=== PATIENT | male | born 1960 | race Caucasian/White ===

== ENCOUNTER → 2016-06-13 | Outpatient (CLI) | payer OTHER ==
[~2016-06-13] MED LIST: AMLO10TA2 PO; BUPR150CR PO; CALC1TAB87 PO; CYMB60CA PO; GABA100C4 PO; GABA300C5 PO; HYDR-3533 PO; HYDR25TA5 PO; IBUP800T23 PO; LIPI10TA PO; LISI10TA3 PO; METO25TA3 PO; OMEP20.6 PO; QUET1TAB8 PO; RANI150T PO; SERT-132 PO
--- NOTE | 2016-06-13 10:55 | RADRPT ---
EXAM DATE/TIME: 06/13/2016 09:49 [facility] COMPARISON: FOOT RIGHT COMPLETE ([id number]), May 03, 2016, 10:37. INDICATIONS : Follow up fracture 05-01-16. MEDICAL HISTORY : None. SURGICAL HISTORY : rolled 4th digit right foot 05-01-16., 1st digit amputated from toe infection ENCOUNTER: Initial ACUITY: 1 month PAIN SCORE: 0/10 LOCATION: Right 4th digit FINDINGS: Examination of the fourth digit of the right foot demonstrates interval callus formation around the p reviously identified diaphyseal fracture of the fourth metatarsal. There is partial bony union across the fracture line. Transmetatarsal amputation through the proximal diaphysis the first ray. No new f racture. CONCLUSION: 1. Brisk callus formation around the diaphyseal fracture of the fourth metatarsal with partial bony f usion across the fracture line. 2. No new osseous injury. Danie Resendiz MD on June 13, 2016 at 10:49 Board Certified Radiologist. This report was verified electronically.
== END ==
LOC: HRAD 09:34
PROVIDERS: ATTEND Family Medicine
DX: S92.341A Displaced fracture of fourth metatarsal bone, right foot, initial encounter for closed fracture (principal); X58.XXXA Exposure to other specified factors, initial encounter
CPT/HCPCS: 73660

== ENCOUNTER 2016-07-26 19:50 | Emergency (ER) | payer OTHER ==
[~2016-07-26] VITALS: Ht 185.4 cm; Wt 100.0 kg
[~2016-07-26 19:50] MED LIST changes: -BUPR150CR PO; -CALC1TAB87 PO; -GABA100C4 PO; -LIPI10TA PO; -LISI10TA3 PO; -RANI150T PO
[2016-07-26 19:52] VITALS: BP 141/90; PULSE 84; RESP 16; TEMP 97.8; O2SAT 97
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
[2016-07-26] MEDS ORDERED: HYDR-3533 PO (21:02)
[2016-07-26] MEDS ORDERED: ACETAMINOPHEN/HYDROcodone 325 MG/5 MG TAB PO ONE (21:15)
--- NOTE | 2016-07-26 21:53 | RADRPT ---
EXAM DATE/TIME: 07/26/2016 20:38 [facility] COMPARISON: FOOT RIGHT COMPLETE ([id number]), May 03, 2016, 10:37. INDICATIONS : Right foot pain. MEDICAL HISTORY : None. SURGICAL HISTORY : great toe amputated because of joint infection ENCOUNTER: Initial ACUITY: 1 day PAIN SCORE: 5/10 LOCATION: Right foot FINDINGS: There is acute fracture involving the third metatarsal bone in the midportion. There is a healing fra cture of the fourth metatarsal bone. Again noted is amputation of the first digit. CONCLUSION: There is a new fracture involving the third metatarsal bone. Tulio Ness MD on July 26, 2016 at 21:50 Board Certified Radiologist. This report was verified electronically.
[2016-08-03] MEDS ORDERED: LIPI10TA PO (03:36)
[2016-09-27] MEDS ORDERED: AMLO10TA2 PO (11:48)
[2016-09-27] MEDS ORDERED: LIPI10TA PO (11:49)
[2016-10-27] MEDS ORDERED: GABA100C4 PO (14:54)
[2016-10-27] MEDS ORDERED: LISI10TA3 PO (15:08)
[2016-10-27] MEDS ORDERED: OMEP20.6 PO (15:10)
== END 2016-07-26 23:10 | disposition home or self-care (01) ==
LOC: NEPB 19:50
DX: S92.331A Displaced fracture of third metatarsal bone, right foot, initial encounter for closed fracture (principal); X58.XXXA Exposure to other specified factors, initial encounter; Y93.02 Activity, running
CPT/HCPCS: 73630; 99283; L3260; 29125

== ENCOUNTER → 2016-08-01 | Outpatient (CLI) | payer OTHER ==
[~2016-08-01] MED LIST changes: +BUPR150CR PO; +CALC1TAB87 PO; +GABA100C4 PO; +LIPI10TA PO; +LISI10TA3 PO
[2016-08-01 10:14] LABS: AUTOMATED NEUTROPHIL # 4.4 TH/MM3 (1.8-7.7); BASOPHIL % 0.6 % (0.0-2.0); EOSINOPHIL # 0.1 TH/MM3 (0-0.4); EOSINOPHIL % 1.7 % (0.0-4.0); HEMATOCRIT 40.4 % (39.0-51.0); HEMO FLAGS DIFF FINAL; LYMPH % 20.5 % (9.0-44.0); LYMPHOCYTE # 1.3 TH/MM3 (1.0-4.8); MEAN CELL VOLUME 93.8 FL (80.0-100.0); MEAN CORPUSCULAR HEMOGLOBIN 31.2 PG (27.0-34.0); MEAN CORPUSCULAR HGB CONC 33.3 % (32.0-36.0); MONO % 8.5 % (0.0-8.0); NEUT % 68.7 % (16.0-70.0); PLATELET COUNT 209 TH/MM3 (150-450); RED BLOOD COUNT 4.31 MIL/MM3 (4.50-5.90); RED CELL DISTRIBUTION WIDTH 13.3 % (11.6-17.2); WHITE BLOOD COUNT 6.4 TH/MM3 (4.0-11.0)
[2016-08-01 10:41] LABS: ALKALINE PHOSPHATASE 78 U/L (45-117); ALT (GPT) 114 U/L (12-78); ANION GAP 9 MEQ/L (5-15); AST (GOT) 79 U/L (15-37); BLOOD UREA NITROGEN 16 MG/DL (7-18); CHLORIDE 97 MEQ/L (98-107); GLOMERULAR FILTRATION RATE 66 ML/MIN (>89); GLUCOSE,FASTING 112 MG/DL (74-99); HDL CHOLESTEROL 62.7 MG/DL (40.0-60.0); LDL CHOLESTEROL 164 MG/DL (0-99); POTASSIUM 3.4 MEQ/L (3.5-5.1); SODIUM (NA) 137 MEQ/L (136-145); TOTAL BILIRUBIN ADULT 0.5 MG/DL (0.2-1.0)
== END ==
LOC: CLAB 09:45
PROVIDERS: ATTEND Family Medicine
DX: F32.9 Major depressive disorder, single episode, unspecified (principal); I10 Essential (primary) hypertension; E78.5 Hyperlipidemia, unspecified; G57.90 Unspecified mononeuropathy of unspecified lower limb; S98.139A Complete traumatic amputation of one unspecified lesser toe, initial encounter; S92.341A Displaced fracture of fourth metatarsal bone, right foot, initial encounter for closed fracture; X58.XXXA Exposure to other specified factors, initial encounter
CPT/HCPCS: 36415; 80053; 80061; 84443; 85025

== ENCOUNTER → 2016-08-04 | Outpatient (CLI) | payer OTHER | LOC: CLAB 09:14 | PROVIDERS: ATTEND Family Medicine | DX: R74.8 Abnormal levels of other serum enzymes (principal) | CPT/HCPCS: 36415; 80074 ==

== ENCOUNTER → 2016-09-12 | Outpatient (CLI) | payer OTHER ==
[2016-09-12 10:32] LABS: ALKALINE PHOSPHATASE 99 U/L (45-117); ALT (GPT) 108 U/L (12-78); ANION GAP 11 MEQ/L (5-15); AST (GOT) 85 U/L (15-37); BICARBONATE 29.3 MEQ/L (21.0-32.0); BLOOD UREA NITROGEN 21 MG/DL (7-18); CHLORIDE 98 MEQ/L (98-107); GLOMERULAR FILTRATION RATE 63 ML/MIN (>89); GLUCOSE,FASTING 132 MG/DL (74-99); POTASSIUM 3.1 MEQ/L (3.5-5.1); SODIUM (NA) 138 MEQ/L (136-145); TOTAL BILIRUBIN ADULT 0.8 MG/DL (0.2-1.0)
== END ==
LOC: CLAB 09:38
PROVIDERS: ATTEND Family Medicine
DX: R74.8 Abnormal levels of other serum enzymes (principal)
CPT/HCPCS: 36415; 80053

== ENCOUNTER 2016-10-17 15:52 | Inpatient (IN) | payer OTHER ==
[~2016-10-17] VITALS: Ht 185.4 cm; Wt 91.1 kg
[~2016-10-17 15:52] MED LIST changes: -BUPR150CR PO; -CALC1TAB87 PO; -GABA100C4 PO; -HYDR-3533 PO; -LISI10TA3 PO; -SERT-132 PO
[2016-10-17 15:54] VITALS: BP 132/88; PULSE 110; RESP 20; TEMP 98.7; O2SAT 94
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
[2016-10-17] MEDS ORDERED: LORazepam 2 MG/ML VIAL IV PUSH ONE (17:45)
[2016-10-17] MEDS ORDERED: SODIUM CHLORIDE 0.9% FLUSH 10 ML FLUSH IVF PRN (17:45)
[2016-10-17 17:55] VITALS: BP 161/99; PULSE 86; RESP 16; O2SAT 96
--- NOTE | 2016-10-17 18:04 | RADRPT ---
EXAM DATE/TIME: 10/17/2016 17:53 [facility] COMPARISON: No previous studies available for comparison. INDICATIONS : Shortness of breath. MEDICAL HISTORY : Hypertension. SURGICAL HISTORY : None. ENCOUNTER: Initial ACUITY: 1 day PAIN SCORE: 0/10 LOCATION: Bilateral chest FINDINGS: No infiltrate, effusion or pneumothorax. Mild, symmetric and chronic appearing biapical pleural thick ening/scarring noted. Heart size normal. CONCLUSION: No evidence of acute cardiopulmonary disease. Floyd Osuna MD on October 17, 2016 at 18:02 Board Certified Radiologist. This report was verified electronically.
[2016-10-17 19:00] LABS: AUTOMATED NEUTROPHIL # 5.8 TH/MM3 (1.8-7.7); BASOPHIL # 0.1 TH/MM3 (0-0.2); BASOPHIL % 0.9 % (0.0-2.0); EOSINOPHIL # 0.1 TH/MM3 (0-0.4); EOSINOPHIL % 1.3 % (0.0-4.0); HEMATOCRIT 38.9 % (39.0-51.0); HEMO FLAGS DIFF FINAL; LYMPH % 24.3 % (9.0-44.0); LYMPHOCYTE # 2.1 TH/MM3 (1.0-4.8); MEAN CELL VOLUME 93.9 FL (80.0-100.0); MEAN CORPUSCULAR HEMOGLOBIN 31.7 PG (27.0-34.0); MEAN CORPUSCULAR HGB CONC 33.7 % (32.0-36.0); MONO % 7.8 % (0.0-8.0); NEUT % 65.7 % (16.0-70.0); PLATELET COUNT 238 TH/MM3 (150-450); RED BLOOD COUNT 4.14 MIL/MM3 (4.50-5.90); RED CELL DISTRIBUTION WIDTH 13.2 % (11.6-17.2); WHITE BLOOD COUNT 8.8 TH/MM3 (4.0-11.0)
[2016-10-17 19:16] LABS: ANION GAP 16 MEQ/L (5-15); AST (GOT) 108 U/L (15-37); BICARBONATE 19.1 MEQ/L (21.0-32.0); BLOOD UREA NITROGEN 20 MG/DL (7-18); CHLORIDE 93 MEQ/L (98-107); GLOMERULAR FILTRATION RATE 69 ML/MIN (>89); MAGNESIUM 1.9 MG/DL (1.5-2.5); POTASSIUM 3.4 MEQ/L (3.5-5.1); SODIUM (NA) 128 MEQ/L (136-145)
[2016-10-17 19:17] LABS: ALT (GPT) 129 U/L (12-78)
[2016-10-17 19:21] LABS: ALKALINE PHOSPHATASE 106 U/L (45-117); TOTAL BILIRUBIN ADULT 0.4 MG/DL (0.2-1.0)
[2016-10-17] MEDS ORDERED: SODIUM CHLOR 0.9% 1000 ML INJ 1,000 ML IV SCH ×2 (19:27→19:31)
[2016-10-17] MEDS ORDERED: POTASSIUM CHLORIDE 20 MEQ CONTROLLED RELEASE TAB PO ONE (19:45)
[2016-10-17 19:48] LABS: CREATINE KINASE 82 U/L (39-308)
[2016-10-17] MEDS ORDERED: IOHEXOL 350 MG/ML 10 ML VIAL (for RAD DIAG) IV ONE (20:22)
--- NOTE | 2016-10-17 20:24 | RADRPT ---
EXAM DATE/TIME: 10/17/2016 20:08 [facility] COMPARISON: No previous studies available for comparison. INDICATIONS : Cephalgia. RADIATION DOSE: 53.69 CTDIvol (mGy) MEDICAL HISTORY : Hypertension. SURGICAL HISTORY : None. ENCOUNTER: Initial ACUITY: 2 days PAIN SCALE: 5/10 LOCATION: cranial TECHNIQUE: Multiple contiguous axial images were obtained of the head. Using automated exposure control and adj ustment of the mA and/or kV according to patient size, radiation dose was kept as low as reasonably a chievable to obtain optimal diagnostic quality images. FINDINGS: CEREBRUM: The ventricles are normal for age. No evidence of midline shift, mass lesion, hemorrhage or acute in farction. No extra-axial fluid collections are seen. POSTERIOR FOSSA: The cerebellum and brainstem are intact. The 4th ventricle is midline. The cerebellopontine angle i s unremarkable. EXTRACRANIAL: The visualized portion of the orbits is intact. SKULL: The calvaria is intact. No evidence of skull fracture. CONCLUSION: Negative noncontrast head CT. Floyd Osuna MD on October 17, 2016 at 20:22 Board Certified Radiologist. This report was verified electronically.
--- NOTE | 2016-10-17 20:34 | RADRPT ---
EXAM DATE/TIME: 10/17/2016 20:12 [facility] COMPARISON: No previous studies available for comparison. INDICATIONS : Short of breath X1 month, chest pain today. IV CONTRAST: 73 cc Omnipaque 350 (iohexol) IV RADIATION DOSE: 23.52 CTDIvol (mGy) MEDICAL HISTORY : Hypertension. SURGICAL HISTORY : None. ENCOUNTER: Initial ACUITY: 1 day PAIN SCALE: 0/10 LOCATION: chest TECHNIQUE: Volumetric scanning of the chest was performed using a pulmonary embolism protocol MIP images were re constructed. Using automated exposure control and adjustment of the mA and/or kV according to patien t size, radiation dose was kept as low as reasonably achievable to obtain optimal diagnostic quality images. FINDINGS: PULMONARY ARTERIES: No filling defects are seen in the pulmonary arteries through the segmental level. LUNGS: Mild emphysema. There is no consolidation or pneumothorax . No concerning pulmonary nodule is visual ized. PLEURAE: There is no pleural thickening or pleural effusion. MEDIASTINUM: There is good visualization of the great vessels of the middle mediastinum. No evidence of mediastin al or hilar adenopathy/mass. MUSCULOSKELETAL: Within normal limits for patient age. MISCELLANEOUS: Liver is severely fatty infiltrated and probably enlarged. CONCLUSION: No pulmonary embolus or other acute cardiopulmonary disease demonstrated. There is mild emphysema. Li marti is fatty infiltrated. Floyd Osuna MD on October 17, 2016 at 20:31 Board Certified Radiologist. This report was verified electronically.
[2016-10-17] MEDS ORDERED: SODIUM CHLORIDE 0.9% FLUSH 10 ML FLUSH IV FLUSH PRN (21:00)
[2016-10-17] MEDS ORDERED: NALOXONE HCL 0.4 MG/ML AMP IV PRN (21:00)
[2016-10-17] MEDS: SODIUM CHLORIDE 0.9% FLUSH 10 ML FLUSH IV FLUSH SCH (21:00)
--- NOTE | 2016-10-17 21:56 | EKG ---
Date Performed: 10/17/2016 Time Performed: 18:17:10 PTAGE: 56 years EKG: BASELINE ARTIFACT PRESENT. Sinus rhythm NONSPECIFIC T-WAVE ABNORMALITY BORDERLINE ECG COMPARED TO PRIOR ELECTROCARDIOGRAM, T-wave changes ar e present. PREVIOUS TRACING : 05/27/2014 10.02 DOCTOR: Ethan Schmitz Interpretating Date/Time 10/19/2016 07:07:12
[2016-10-17 22:40] VITALS: BP 104/54
[2016-10-17] MEDS ORDERED: CALC1TAB87 PO (23:44)
[2016-10-17] MEDS ORDERED: BUPR150CR PO (23:44)
[2016-10-18] VITALS (7 sets, daily range): BP systolic 125–169; BP diastolic 84–102; PULSE 73–85; RESP 17–18; TEMP 96.6–97.8; O2SAT 93–98
[2016-10-18 02:30] LABS: AUTOMATED NEUTROPHIL # 4.4 TH/MM3 (1.8-7.7); BASOPHIL % 0.6 % (0.0-2.0); EOSINOPHIL # 0.1 TH/MM3 (0-0.4); EOSINOPHIL % 1.4 % (0.0-4.0); HEMATOCRIT 36.5 % (39.0-51.0); HEMO FLAGS DIFF FINAL; LYMPH % 24.1 % (9.0-44.0); LYMPHOCYTE # 1.6 TH/MM3 (1.0-4.8); MEAN CELL VOLUME 94.6 FL (80.0-100.0); MEAN CORPUSCULAR HEMOGLOBIN 31.2 PG (27.0-34.0); MEAN CORPUSCULAR HGB CONC 32.9 % (32.0-36.0); MONO % 7.9 % (0.0-8.0); PLATELET COUNT 193 TH/MM3 (150-450); RED BLOOD COUNT 3.86 MIL/MM3 (4.50-5.90); RED CELL DISTRIBUTION WIDTH 13.2 % (11.6-17.2); WHITE BLOOD COUNT 6.6 TH/MM3 (4.0-11.0)
[2016-10-18 02:40] LABS: ALKALINE PHOSPHATASE 90 U/L (45-117); ALT (GPT) 110 U/L (12-78); ANION GAP 8 MEQ/L (5-15); AST (GOT) 97 U/L (15-37); BICARBONATE 27.6 MEQ/L (21.0-32.0); BLOOD UREA NITROGEN 19 MG/DL (7-18); CHLORIDE 106 MEQ/L (98-107); GLOMERULAR FILTRATION RATE 85 ML/MIN (>89); POTASSIUM 3.9 MEQ/L (3.5-5.1); SODIUM (NA) 142 MEQ/L (136-145); TOTAL BILIRUBIN ADULT 0.7 MG/DL (0.2-1.0)
[2016-10-18 02:41] LABS: CREATINE KINASE 81 U/L (39-308)
--- NOTE | 2016-10-18 04:04 | HHI.HP ---
[facility]ician Robyn Aviles MD Admission Diagnosis dyspnea, dizziness, hyponatremia Diagnoses: Travel History International Travel<30 Days: No Contact w/Intl Traveler <30 Da: No Traveled to Known Affected Are: No History of Present Illness Patient reports that he came to the hospital because he was having shortness of breath and dizziness for over a month. He states that he is also having associated muscle spasms that he wanted it checked out. He reports his shortness of breath is mostly on exertion. Denies using pillows milligram his normal. Denies peripheral edema. He states that he does have some right foot swelling which is chronic. Denies cough. Denies sputum production. Denies fever. Denies any recent prolonged travels. States that he does smoke about a pack a day for about 15 years. However quit 25 years ago. He states that his dizziness was worse when he sat up suddenly. He states sometimes he felt as though this dizziness is radiating down his arms. He has fallen 3 times so far because of this dizziness. He states that the last time was just last week at [employer] suddenly fell backwards as he was trying to stand up. Denies syncope though. Denies any chest pains or palpitations. Patient reports history of hypertension for which she takes medications. He states that his blood pressure has been low in the 90s systolic over 60s diastolic. Therefore his primary care doctor has actually taken away his diuretics from his blood pressure regimen. Also reports of hard stool which is black in color. He reports seeing some red color streaks of blood on wiping as well. Never had colonoscopy. Denies any hematemesis does drink etoh - only 1-3 drinks each time, but not every day, mostly social drinker essential tremors from family hx when 18yo lacerated liver from accident Review of Systems Except as stated in HPI: all other systems reviewed are Neg Past Family Social History Past Medical History htn 5 yrs ago- stress test- wnl Past Surgical History chest tube for collapsed lung from accident at 18yo liver laceration sx at 18yo from accident foot sx Allergies: Coded Allergies: No Known Allergies (Unverified , 10/17/16) Family History mother- breast cancer father- stroke, had some cancer but doesnt know which one essential tremors Social History no drugs Physical Exam Vital Signs Vital Signs Date Time Temp Pulse Resp B/P Pulse Ox O2 Delivery O2 Flow Rate FiO2 10/18/16 00:16 97.0 85 17 151/94 94 10/17/16 22:48 Nasal Cannula 2.00 10/17/16 22:40 102 16 104/54 99 10/17/16 22:01 96 10/17/16 17:55 86 16 161/99 96 Nasal Cannula 2 10/17/16 15:54 98.7 110 20 132/88 94 Physical Exam GENERAL: This is a well-nourished, well-developed patient, in no apparent distress. SKIN: No rashes, ecchymoses or lesions. Cool and dry. HEAD: Atraumatic. Normocephalic. No temporal or scalp tenderness. EYES: No scleral icterus. No injection or drainage. ENT: Nose without bleeding, purulent drainage or septal hematoma. Airway patent. NECK: Trachea midline. No JVD CARDIOVASCULAR: Regular rate and rhythm without murmurs, gallops, or rubs. RESPIRATORY: Clear to auscultation. Breath sounds equal bilaterally. No wheezes , rales, or rhonchi. GASTROINTESTINAL: Abdomen soft, non-tender, nondistended.. No guarding. MUSCULOSKELETAL: Extremities without clubbing, cyanosis, or edema. . No calf tenderness. NEUROLOGICAL: Awake and alert. Motor and sensory grossly within normal limits. Normal speech. Laboratory Laboratory Tests Test 10/17/16 10/17/16 10/18/16 18:30 19:30 02:02 White Blood Count 8.8 6.6 Red Blood Count 4.14 3.86 Hemoglobin 13.1 12.0 Hematocrit 38.9 36.5 Mean Corpuscular Volume 93.9 94.6 Mean Corpuscular Hemoglobin 31.7 31.2 Mean Corpuscular Hemoglobin 33.7 32.9 Concent Red Cell Distribution Width 13.2 13.2 Platelet Count 238 193 Mean Platelet Volume 8.0 7.9 Neutrophils (%) (Auto) 65.7 66.0 Lymphocytes (%) (Auto) 24.3 24.1 Monocytes (%) (Auto) 7.8 7.9 Eosinophils (%) (Auto) 1.3 1.4 Basophils (%) (Auto) 0.9 0.6 Neutrophils # (Auto) 5.8 4.4 Lymphocytes # (Auto) 2.1 1.6 Monocytes # (Auto) 0.7 0.5 Eosinophils # (Auto) 0.1 0.1 Basophils # (Auto) 0.1 0.0 CBC Comment DIFF FINAL DIFF FINAL Differential Comment Sodium Level 128 142 Potassium Level 3.4 3.9 Chloride Level 93 106 Carbon Dioxide Level 19.1 27.6 Anion Gap 16 8 Blood Urea Nitrogen 20 19 Creatinine 1.11 0.92 Estimat Glomerular Filtration 69 85 Rate Random Glucose 98 112 Calcium Level 8.9 8.0 Magnesium Level 1.9 Total Bilirubin 0.4 0.7 Aspartate Amino Transf 108 97 (AST/SGOT) Alanine Aminotransferase 129 110 (ALT/SGPT) Alkaline Phosphatase 106 90 Total Creatine Kinase 82 81 Troponin I LESS THAN 0.02 LESS THAN 0.02 B-Type Natriuretic Peptide LESS THAN 2 Total Protein 7.8 6.6 Albumin 3.7 3.3 Lactic Acid Level 1.9 Salicylates Level LESS THAN 1.7 Result Diagram: 10/18/16 0202 10/18/16 0202 Imaging Last 48 hours Impressions Chest X-Ray 10/17/161733 Signed Impressions: Service Date/Time: Monday, October 17, 2016 17:53 - CONCLUSION: No evidence of acute cardiopulmonary disease. Floyd Osuna MD CT Angiography 10/17/161733 Signed Impressions: Service Date/Time: Monday, October 17, 2016 20:12 - CONCLUSION: No pulmonary embolus or other acute cardiopulmonary disease demonstrated. There is mild emphysema. Liver is fatty infiltrated. Floyd Osuna MD Head CT 10/17/16 0000 Signed Impressions: Service Date/Time: Monday, October 17, 2016 20:08 - CONCLUSION: Negative noncontrast head CT. Floyd Osuna MD Assessment and Plan Problem List: (1) Shortness of breath ICD Code: R06.02 Status: Acute (2) Elevated liver function tests ICD Code: R94.5 Status: Acute (3) Dyspnea on exertion ICD Code: R06.09 Status: Acute (4) Hyponatremia ICD Code: E87.1 Status: Acute (5) Hypokalemia ICD Code: E87.6 Status: Acute Assessment and Plan Impression: Dizziness/shortness of breath on exertionI do believe these are from symptomatic anemia. Patient's BNP is normal. Chest x-ray did not reveal any infiltrates nor pulmonary edema. CT pulmonary angiogram is negative for PE. Tremorsessential tremors versus early alcohol withdrawal. Difficult to assess the exact quantity of his drinking. We'll need to watch for withdrawal. Hyponatremia Hypokalemia Anion gap Metabolic acidosis transaminitis Plan: Serial hemoglobin and hematocrit. Occult blood in stool. GI consult. For ischemia workup Electrolyte correction. Patient was given normal saline 2 L bolus in ER. Hyponatremia had resolved. Replace potassium 40 a.m. EQ by mouth. Check hepatitis profile. Repeat lab work BMP Hold statin. Lowest resume home meds. DVT prophylaxis Lovenox. GI prophylaxis on pantoprazole. Discussed Condition With Patient, ER physician, patient's nurse Physician Certification 2 Midnight Certification Type: Admission for Inpatient Services Order for Inpatient Services The services are ordered in accordance with Medicare regulations or non- Medicare payer requirements, as applicable. In the case of services not specified as inpatient-only, they are appropriately provided as inpatient services in accordance with the 2-midnight benchmark. Estimated LOS (days): 2 days is the estimated time the patient will need to remain in the hospital, assuming treatment plan goals are met and no additional complications. Post-Hospital Plan: Home Sebastian Zuleta MD Oct 18, 2016 04:04
--- NOTE | 2016-10-18 07:51 | EKG ---
Date Performed: 10/18/2016 Time Performed: 01:48:19 PTAGE: 56 years EKG: BASELINE ARTIFACT PRESENT. Sinus rhythm NONSPECIFIC T-WAVE ABNORMALITY BORDERLINE ECG Within the constraints of artifact, no significant hieu nge. PREVIOUS TRACING : 10/17/2016 18.17 DOCTOR: Ethan Schmitz Interpretating Date/Time 10/18/2016 07:50:35
[2016-10-18] MEDS: buPROPion HCL 150 MG SUSTAINED RELEASE TAB PO SCH (09:00)
--- NOTE | 2016-10-18 10:30 | EKG ---
Date Performed: 10/18/2016 Time Performed: 08:02:35 PTAGE: 56 years EKG: Sinus rhythm NORMAL ECG COMPARED TO PRIOR ELECTROCARDIOGRAM, Nonspecific T wave changes have improved. PREVIOUS TRACING : 10/18/2016 01.48 DOCTOR: Ethan Schmitz Interpretating Date/Time 10/18/2016 10:28:42
[2016-10-18 10:36] LABS: CREATINE KINASE 97 U/L (39-308)
[2016-10-18] MEDS: METOPROLOL TARTRATE 25 MG TAB PO SCH ×2 (10:39→21:17)
[2016-10-18] MEDS: PANTOPRAZOLE SOD 20 MG DELAYED RELEASE TAB PO SCH ×2 (10:39→21:18)
[2016-10-18] MEDS: GABAPENTIN 300 MG CAP PO SCH ×2 (10:39→21:18)
[2016-10-18] MEDS: SODIUM CHLORIDE 0.9% FLUSH 10 ML FLUSH IV FLUSH SCH ×2 (10:43→21:18)
--- NOTE | 2016-10-18 11:42 | PD.CONS ---
HPI History of Present Illness This is a 56 year old male who presented to hospital with SOB, dizziness, decreased activity tolerance, onset 3m ago. He was found to be anemic with hgb 13 yesterday and 12 today, and have heme pos stool. He has fallen 3 times from being dizzy. He has also had black stools for the last 6 months and has recently started noticing bright red blood on wipe after BM. He has been taking ibuprofen 9736-1411 mg daily for the last year for a foot injury. No n/v , hematemesis, pain, weight loss. He does have reflux for which he takes omeprazole and it controls his symptoms. He had a barium swallow 04/2016 for GERD which showed moderate to severe gastroesophageal reflux to the level of cervical esophageal with valsalva maneuver, small sliding type hiatal hernia. ( Megan Armando) PFSH Past Medical History htn 5 yrs ago- stress test- wnl Past Surgical History chest tube for collapsed lung from accident at 18yo liver laceration sx at 18yo from accident foot sx (Megan Armando) Coded Allergies: No Known Allergies (Unverified , 10/17/16) Family History mother- breast cancer father- stroke, had some cancer but doesnt know which one essential tremors Social History no drugs occasional ETOH former smoker per EMR (Megan Armando) Review of Systems Constitutional: COMPLAINS OF: Dizziness, DENIES: Fever, Weight loss Eyes: DENIES: Blurred vision Ears, nose, mouth, throat: DENIES: Hearing loss Respiratory: DENIES: Wheezing Gastrointestinal: COMPLAINS OF: Black stools, DENIES: Abdominal pain, Bloody stools, Constipation, Diarrhea, Nausea, Vomiting, Hematemesis Genitourinary: DENIES: Hematuria Musculoskeletal: DENIES: Muscle aches Neurologic: DENIES: Abnormal gait Psychiatric: DENIES: Confusion (Megan Armando) GI Exam Vitals I&O Vital Signs Date Time Temp Pulse Resp B/P Pulse Ox O2 Delivery O2 Flow Rate FiO2 10/18/16 08:00 96.6 78 18 142/90 93 10/18/16 04:30 97.0 80 17 147/90 94 10/18/16 00:16 97.0 85 17 151/94 94 10/17/16 22:48 Nasal Cannula 2.00 6/12/17 22:40 102 16 104/54 99 10/17/16 22:01 96 10/17/16 17:55 86 16 161/99 96 Nasal Cannula 2 10/17/16 15:54 98.7 110 20 132/88 94 I/O 10/17/16 10/17/16 10/17/16 10/18/16 10/18/16 10/18/16 07:00 15:00 23:00 07:00 15:00 23:00 Intake Total 2000 ml 240 ml Balance 2000 ml 240 ml Intake Oral 240 ml IV Total 2000 ml # Voids 1 # Bowel Movements 0 Imaging Last Impressions Chest X-Ray 10/17/16 1734 Signed Impressions: Service Date/Time: Monday, October 17, 2016 17:53 - CONCLUSION: No evidence of acute cardiopulmonary disease. Floyd Osuna MD CT Angiography 10/17/16 1734 Signed Impressions: Service Date/Time: Monday, October 17, 2016 20:12 - CONCLUSION: No pulmonary embolus or other acute cardiopulmonary disease demonstrated. There is mild emphysema. Liver is fatty infiltrated. Floyd Osuna MD Head CT 10/17/16 0000 Signed Impressions: Service Date/Time: Monday, October 17, 2016 20:08 - CONCLUSION: Negative noncontrast head CT. Floyd Osuna MD Laboratory Test 10/17/16 10/17/16 10/18/16 10/18/16 18:30 19:30 02:02 09:48 White Blood Count 8.8 TH/MM3 6.6 TH/MM3 Red Blood Count 4.14 MIL/MM3 3.86 MIL/MM3 Hemoglobin 13.1 GM/DL 12.0 GM/DL Hematocrit 38.9 % 36.5 % Mean Corpuscular Volume 93.9 FL 94.6 FL Mean Corpuscular Hemoglobin 31.7 PG 31.2 PG Mean Corpuscular Hemoglobin 33.7 % 32.9 % Concent Red Cell Distribution Width 13.2 % 13.2 % Platelet Count 238 TH/MM3 193 TH/MM3 Mean Platelet Volume 8.0 FL 7.9 FL Neutrophils (%) (Auto) 65.7 % 66.0 % Lymphocytes (%) (Auto) 24.3 % 24.1 % Monocytes (%) (Auto) 7.8 % 7.9 % Eosinophils (%) (Auto) 1.3 % 1.4 % Basophils (%) (Auto) 0.9 % 0.6 % Neutrophils # (Auto) 5.8 TH/MM3 4.4 TH/MM3 Lymphocytes # (Auto) 2.1 TH/MM3 1.6 TH/MM3 Monocytes # (Auto) 0.7 TH/MM3 0.5 TH/MM3 Eosinophils # (Auto) 0.1 TH/MM3 0.1 TH/MM3 Basophils # (Auto) 0.1 TH/MM3 0.0 TH/MM3 CBC Comment DIFF FINAL DIFF FINAL Differential Comment Sodium Level 128 MEQ/L 142 MEQ/L Potassium Level 3.4 MEQ/L 3.9 MEQ/L Chloride Level 93 MEQ/L 106 MEQ/L Carbon Dioxide Level 19.1 MEQ/L 27.6 MEQ/L Anion Gap 16 MEQ/L 8 MEQ/L Blood Urea Nitrogen 20 MG/DL 19 MG/DL Creatinine 1.11 MG/DL 0.92 MG/DL Estimat Glomerular Filtration 69 ML/MIN 85 ML/MIN Rate Random Glucose 98 MG/DL 112 MG/DL Calcium Level 8.9 MG/DL 8.0 MG/DL Magnesium Level 1.9 MG/DL Total Bilirubin 0.4 MG/DL 0.7 MG/DL Aspartate Amino Transf 108 U/L 97 U/L (AST/SGOT) Alanine Aminotransferase 129 U/L 110 U/L (ALT/SGPT) Alkaline Phosphatase 106 U/L 90 U/L Total Creatine Kinase 82 U/L 81 U/L 97 U/L Troponin I LESS THAN 0.02 LESS THAN 0.02 LESS THAN 0.02 NG/ML NG/ML NG/ML B-Type Natriuretic Peptide LESS THAN 2 PG/ML Total Protein 7.8 GM/DL 6.6 GM/DL Albumin 3.7 GM/DL 3.3 GM/DL Lactic Acid Level 1.9 mmol/L Salicylates Level LESS THAN 1.7 MG/DL Date/Time Procedure Status Source Growth 10/18/16 10:10 Stool Occult Blood (BEAR) Received Stool Stool Pending Physical Examination HEENT: EOMI; normocephalic; atraumatic; no jaundice. CHEST: CTA CARDIAC: RRR ABDOMEN: Soft, nondistended, nontender; no hepatosplenomegaly; bowel sounds are present in all four quadrants. EXTREMITIES: No clubbing, cyanosis, or edema. SKIN: Normal; no rash; no jaundice. BLACK PULLER: No focal deficits; alert and oriented times three. (Megan Armando) Assessment and Plan Plan ASSESSMENT - anemia - hgb 13.1 yesterday, 12 today. never had EGD or colonoscopy. - melena - pt with black stools for 6m and NSAID use daily for last year, 1600- 2400mg PLAN - EGD /colonoscopy - obtain consents - Golytely - clears today - NPO after midnight - monitor HH - further recommendations to follow THis pt seen by myself and DR García and this note is written on his behalf ( Megan Armando) Physician Comments Seen and examined with RIKKI, egd/colonoscopy with golytle prep planned for tomorrow. Thank you (Moses García MD) Megan Armando Oct 18, 2016 11:42 Moses García MD Oct 18, 2016 14:34
[2016-10-18] MEDS ORDERED: PEG (High)/E-LYTE SOLN 4000 ML BTL PO ONE (16:00)
--- NOTE | 2016-10-18 16:52 | ECHRPT ---
Indication: Shortness of breath CONCLUSIONS The left ventricular systolic function is mildly reduced with an estimated ejection fraction in the range of 45- 50%. The pulmonary valve is not well visualized. BP: 142 / 90 HR: 78 Rhythm: Other MEASUREMENTS (Male / Female) Normal Values Technical Quality:Good 2D ECHO LV Diastolic Diameter PLAX 5.1 cm 4.2 - 5.9 / 3.9 - 5.3 cm LV Systolic Diameter PLAX 4.1 cm IVS Diastolic Thickness 1.1 cm 0.6 - 1.0 / 0.6 - 0.9 cm LVPW Diastolic Thickness 1.1 cm 0.6 - 1.0 / 0.6 - 0.9 cm LV Relative Wall Thickness 0.4 LVOT Diameter 2.1 cm M-MODE Aortic Root Diameter MM 3.8 cm LA Systolic Diameter MM 3.8 cm LA Ao Ratio MM 1.0 AV Cusp Separation MM 2.5 cm DOPPLER AV Peak Velocity 135.0 cm/s AV Peak Gradient 7.3 mmHg LVOT Peak Velocity 102.0 cm/s LVOT Peak Gradient 4.2 mmHg AV Area Cont Eq pk 2.6 cm MR Peak Velocity 426.0 cm/s MR Peak Gradient 72.6 mmHg Mitral E Point Velocity 51.3 cm/s Mitral A Point Velocity 72.6 cm/s Mitral E to A Ratio 0.7 LV E' Lateral Velocity 10.2 cm/s Mitral E to LV E' Lateral Ratio 5.0 LV E' Septal Velocity 7.5 cm/s Mitral E to LV E' Septal Ratio 6.8 TR Peak Velocity 249.0 cm/s TR Peak Gradient 24.8 mmHg PV Peak Velocity 102.0 cm/s PV Peak Gradient 4.2 mmHg FINDINGS LEFT VENTRICLE The left ventricular systolic function is mildly reduced with an estimated ejection fraction in the range of 45- 50%. RIGHT VENTRICLE Normal right ventricular size and systolic function. LEFT ATRIUM The left atrial size is normal. RIGHT ATRIUM The right atrial size is normal. ATRIAL SEPTUM Normal atrial septal thickness without atrial level shunting by limited color doppler interrogation. AORTA The aortic root and proximal ascending aorta are normal in size on limited imaging. MITRAL VALVE Structurally normal mitral valve. No mitral valve stenosis or regurgitation. AORTIC VALVE Trileaflet aortic valve. No aortic valve stenosis or regurgitation. TRICUSPID VALVE Structurally normal tricuspid valve. No tricuspid valve stenosis or regurgitation. PULMONARY VALVE The pulmonary valve is not well visualized. VESSELS The inferior vena cava is normal in size. PERICARDIUM No pericardial effusion. Terrie Martin MD, FACC (Electronically Signed) Final Date:18 October 2016 16:51
[2016-10-18] MEDS ORDERED: ACETAMIN 325 MG/BUTALBITAL 50 MG/CAFFEINE 40 MG TAB PO ONE (17:00)
[2016-10-18] MEDS ORDERED: cloNIDine HCL 0.1 MG TAB PO PRN (17:00)
[2016-10-18] MEDS ORDERED: ENALAPRILAT 1.25 MG/ML VIAL IV PUSH PRN (19:00)
[2016-10-18] MEDS ORDERED: QUEtiapine FUMARATE 100 MG TAB PO SCH (21:00)
[2016-10-18] MEDS ORDERED: DULoxetine HCl DR 60 MG CAP PO SCH (21:00)
[2016-10-18] MEDS ORDERED: ATORVASTATIN 10 MG TAB PO SCH (21:00)
[2016-10-18] MEDS ORDERED: POVIDONE IODINE 5% (ANTISEPSIS KIT) 4 APPLICATIONS EACH NARE PRN (23:00)
[2016-10-18] MEDS ORDERED: INSULIN HUMAN REGULAR 1,000 UNITS/10 ML VIAL SQ PRN (23:00)
[2016-10-18] MEDS ORDERED: SODIUM CHLORID 0.9% 500 ML IV PRN (23:00)
[2016-10-18] MEDS ORDERED: LACTATED RINGER'S 1000 ML IV PRN (23:00)
[2016-10-18] MEDS ORDERED: CHLORHEXIDINE GLUCONATE 2 % 1 PACK (2 CLOTHS) TOPICAL PRN (23:00)
[2016-10-19 01:00] VITALS: BP 92/72; PULSE 67; RESP 17; TEMP 96.7; O2SAT 93
[2016-10-19 04:40] VITALS: BP 111/82; PULSE 83; RESP 17; TEMP 97; O2SAT 93
[2016-10-19 07:22] LABS: HEMATOCRIT 37.3 % (39.0-51.0); MEAN CELL VOLUME 94.9 FL (80.0-100.0); MEAN CORPUSCULAR HEMOGLOBIN 31.8 PG (27.0-34.0); MEAN CORPUSCULAR HGB CONC 33.5 % (32.0-36.0); PLATELET COUNT 205 TH/MM3 (150-450); RED BLOOD COUNT 3.92 MIL/MM3 (4.50-5.90); RED CELL DISTRIBUTION WIDTH 13.1 % (11.6-17.2); REVIEW FLAG FINAL; WHITE BLOOD COUNT 5.3 TH/MM3 (4.0-11.0)
[2016-10-19 08:00] VITALS: BP 150/84; PULSE 68; PULSE 80; RESP 16; TEMP 96; O2SAT 99
[2016-10-19] MEDS: SODIUM CHLORIDE 0.9% FLUSH 10 ML FLUSH IV FLUSH SCH (08:02)
[2016-10-19] MEDS: PANTOPRAZOLE SOD 20 MG DELAYED RELEASE TAB PO SCH (08:02)
[2016-10-19] MEDS: GABAPENTIN 300 MG CAP PO SCH (08:02)
[2016-10-19] MEDS: METOPROLOL TARTRATE 25 MG TAB PO SCH (08:02)
[2016-10-19] MEDS: buPROPion HCL 150 MG SUSTAINED RELEASE TAB PO SCH (08:03)
[2016-10-19 08:25] LABS: BICARBONATE 27.3 MEQ/L (21.0-32.0)
[2016-10-19 08:50] VITALS: BP 150/84; PULSE 68; RESP 16; O2SAT 99
[2016-10-19] MEDS ORDERED: PROPOFOL 200 MG/20 ML AMP IV PUSH ONE (09:22)
--- NOTE | 2016-10-19 09:29 | GIPROC ---
[facility] [address] [facility]. [facility], [address] EGD PROCEDURE REPORT EXAM DATE: 10/19/2016 PATIENT NAME: Nima Santos MR #: [id number] BIRTHDATE: 1960 ATTENDING: Moses García MD ORDER #: [id number] TICKET WRITER: Alice Corona and Carolann Barajas STATUS: inpatient INDICATIONS: The patient is a 56 yr old male here for an EGD due to melena PROCEDURE PERFORMED: EGD w/ biopsy MEDICATIONS: None and Per Anesthesia. TOPICAL ANESTHETIC: CONSENT: The patient understands the risks and benefits of the procedure and understands that these risks include, but are not limited to: sedation, allergic reaction, infection, perforation and/or bleeding. Alternative means of evaluation and treatment include, among others: physical exam, x-rays, and/or surgical intervention. The patient elects to proceed with this endoscopic procedure. medical equipment was checked for proper function. Hand hygiene and appropriate measures for infection prevention was taken. After the risks, benefits and alternatives of the procedure were thoroughly explained, Informed consent was verified, confirmed and timeout was successfully executed by the treatment team. The patient was anesthetized with topical anesthesia and the EC-[id number] (Pedi C) endoscope was introduced through the mouth and advanced to the second portion of the duodenum. Retroflexed views revealed a hiatal hernia The gastroscope was then slowly withdrawn and removed. ESOPHAGUS: There was LA Class A esophagitis noted. A biopsy was performed using cold forceps. Sample sent for histology. STOMACH: There was erythematous moderate gastritis in the gastric antrum. A biopsy was performed using cold forceps. Sample sent for histology. DUODENUM: The duodenal mucosa appeared normal. ADVERSE EVENTS: There were no complications. IMPRESSIONS: 1. There was LA Class A esophagitis noted; biopsy was performed 2. There was erythematous gastritis in the gastric antrum; biopsy was performed 3. Normal duodenal mucosa 4. Retroflexed views revealed a hiatal hernia RECOMMENDATIONS: 1. Await biopsy results. Biopsy results will not be ready for 7-10 days. If you don't hear from us in two weeks, call our office for biopsy results. 2. Anti-reflux regimen 3. Continue PPI 4. Avoid NSAIDS PATIENT CONDITION: stable DISPOSITION: Inpatient REPEAT EXAM: Return 1 year EGD pending biopsy results Moses García MD eSigned: Moses García MD 10/19/2016 9:29 AM cc: PATIENT NAME: Nima Santos Tavon MR#: [id number]
--- NOTE | 2016-10-19 09:31 | GIPROC ---
[facility] [address] [facility]. [facility], [address] COLONOSCOPY PROCEDURE REPORT EXAM DATE: 10/19/2016 PATIENT NAME: Nima Santos MR #: [id number] BIRTHDATE: 1960 ENDOSCOPIST: Moses García MD ORDER #: [id number] HUMAN RESOURCES ASSISTANT: Alice Corona and Carolann Barajas STATUS: inpatient INDICATIONS: The patient is a 56 yr old male here for a colonoscopy due to iron deficiency anemia PROCEDURE PERFORMED: Colonoscopy with biopsy MEDICATIONS: None and Per Anesthesia. PREP QUALITY: The [place] Diaz Bowel Prep Score was Right colon 2, Mid colon 3, and Left colon 3. Total = 8. PREP TYPE:GoLytely ESTIMATED BLOOD LOSS: None CONSENT: The patient understands the risks and benefits of the procedure and understands that these risks include, but are not limited to: sedation, allergic reaction, infection, perforation and/or bleeding. Alternative means of evaluation and treatment include, among others: physical exam, x-rays, and/or surgical intervention. The patient elects to proceed with this endoscopic procedure. medical equipment was checked for proper function. Hand hygiene and appropriate measures for infection prevention was taken. After the risks, benefits and alternatives of the procedure were thoroughly explained, Informed consent was verified, confirmed and timeout was successfully executed by the treatment team. A digital exam The Pentax EC-[id number] endoscope was introduced through the anus and advanced to the terminal ileum which was intubated for a short distance. The instrument was then slowly withdrawn as the colon was fully examined. COLON FINDINGS: Moderate diverticulosis was noted in the ascending colon. No bleeding was noted from the diverticulosis. A polypoid shaped adenomatous polyp ranging between 3-5mm in size was found in the sigmoid colon. A biopsy was performed using cold forceps. A polypoid shaped adenomatous polyp was found in the transverse colon. Multiple biopsies were performed using cold forceps. Retroflexed views revealed internal hemorrhoids and Retroflexed views revealed small internal hemorrhoids The scope was then completely withdrawn from the patient and the procedure terminated. PROCEDURE WITHDRAWAL TIME:6minutes ADVERSE EVENTS: There were no complications. IMPRESSIONS: 1. Moderate diverticulosis was noted in the ascending colon 2. An adenomatous polyp ranging between 3-5mm in size was found in the sigmoid colon; biopsy was performed using cold forceps 3. An adenomatous polyp was found in the transverse colon; multiple biopsies were performed using cold forceps 4. Retroflexed views revealed internal hemorrhoids 5. Retroflexed views revealed small internal hemorrhoids RECOMMENDATIONS: 1. Await biopsy results. Biopsy results will not be ready for 7-10 days. If you don't hear from us in two weeks, call our office for results. 2. Benefiber 2 tsp daily 3. Continue surveillance 4. Yearly hemoccult 5. No seeds, nuts and popcorn in diet 6. Follow-up: GI Clinic 4 week(s) RECALL: Return 5 years Colonoscopy, pending biopsy results Moses García MD eSigned: Moses García MD 10/19/2016 9:31 AM cc: PATIENT NAME: Nima Santos MR#: [id number]
[2016-10-19 12:00] VITALS: BP_SYST 123; BP_SYST 132; BP_SYST 152; BP_DIAS 85; BP_DIAS 94; BP_DIAS 96; PULSE 67; RESP 17; TEMP 96.5; O2SAT 94
[2016-10-19] MEDS ORDERED: LISI10TA3 PO (12:49)
--- NOTE | 2016-10-19 14:29 | HHI.DS ---
Discharge Summary Admission Date Oct 17, 2016 at 22:04 Discharge Date: Oct 19, 2016 Admitting Diagnosis dyspnea, dizziness, hyponatremia (1) Shortness of breath ICD Code: R06.02 Diagnosis: Principal (2) Elevated liver function tests ICD Code: R94.5 Diagnosis: Principal (3) Dyspnea on exertion ICD Code: R06.09 Diagnosis: Principal (4) Hyponatremia ICD Code: E87.1 (5) Hypokalemia ICD Code: E87.6 Diagnosis: Principal Procedures Colonoscopy Brief History - From Admission Patient reports that he came to the hospital because he was having shortness of breath and dizziness for over a month. He states that he is also having associated muscle spasms that he wanted it checked out. He reports his shortness of breath is mostly on exertion. Denies using pillows milligram his normal. Denies peripheral edema. He states that he does have some right foot swelling which is chronic. Denies cough. Denies sputum production. Denies fever. Denies any recent prolonged travels. States that he does smoke about a pack a day for about 15 years. However quit 25 years ago. He states that his dizziness was worse when he sat up suddenly. He states sometimes he felt as though this dizziness is radiating down his arms. He has fallen 3 times so far because of this dizziness. He states that the last time was just last week at [place] suddenly fell backwards as he was trying to stand up. Denies syncope though. Denies any chest pains or palpitations. Patient reports history of hypertension for which she takes medications. He states that his blood pressure has been low in the 90s systolic over 60s diastolic. Therefore his primary care doctor has actually taken away his diuretics from his blood pressure regimen. Also reports of hard stool which is black in color. He reports seeing some red color streaks of blood on wiping as well. Never had colonoscopy. Denies any hematemesis does drink etoh - only 1-3 drinks each time, but not every day, mostly social drinker essential tremors from family hx when 18yo lacerated liver from accident CBC/BMP: 10/19/1633 10/19/1633 Significant Findings Laboratory Tests Test 10/17/16 10/17/16 10/18/16 10/18/16 18:30 19:30 02:02 09:48 Red Blood Count 4.14 MIL/MM3 3.86 MIL/MM3 (4.50-5.90) (4.50-5.90) Hematocrit 38.9 % 36.5 % (39.0-51.0) (39.0-51.0) Sodium Level 128 MEQ/L (136-145) Potassium Level 3.4 MEQ/L (3.5-5.1) Chloride Level 93 MEQ/L (98-107) Carbon Dioxide Level 19.1 MEQ/L (21.0-32.0) Anion Gap 16 MEQ/L (5-15) Blood Urea Nitrogen 20 MG/DL (7-18) 19 MG/DL (7-18) Estimat Glomerular Filtration 69 ML/MIN (>89) 85 ML/MIN (>89) Rate Aspartate Amino Transf 108 U/L (15-37) 97 U/L (15-37) (AST/SGOT) Alanine Aminotransferase 129 U/L (12-78) 110 U/L (12-78) (ALT/SGPT) Troponin I LESS THAN 0.02 LESS THAN 0.02 LESS THAN 0.02 NG/ML NG/ML NG/ML (0.02-0.05) (0.02-0.05) (0.02-0.05) Salicylates Level LESS THAN 1.7 MG/DL (2.8-20.0) Hemoglobin 12.0 GM/DL (13.0-17.0) Random Glucose 112 MG/DL (74-106) Calcium Level 8.0 MG/DL (8.5-10.1) Albumin 3.3 GM/DL (3.4-5.0) Test 10/19/16 06:33 Red Blood Count 3.92 MIL/MM3 (4.50-5.90) Hemoglobin 12.5 GM/DL (13.0-17.0) Hematocrit 37.3 % (39.0-51.0) Hospital Course Mr. Santos is a 56-year-old male who is admitted secondary to dyspnea, dizziness, hyponatremia, and GI bleed. GI bleed did not cause significant amount blood loss. Anemia remained mild and is improving today. Bleeding has stopped. Patient is status post colonoscopy and findings were consistent with diverticulosis. No active bleeding seen during colonoscopy. The patient missed to heavy drinking. He has had more significant problems with alcoholism in the past. His dizziness may be related to this. Hyponatremia was related to this and has improved within the first day. Testing for orthostatic hypotension is positive. Patient's blood pressure treatments are adjusted with cessation of metoprolol. Metoprolol is held for now despite mild congestive heart failure. 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 Dyspnea and dizziness may have been secondary to orthostatic hypotension. Amlodipine has been stopped for potential pulmonary edema. The degree of blood loss and the degree of CHF does not appear to be contributory to his dyspnea. CTA did not show any pulmonary embolism. CTA also did not show any chronic lung disease to explain his symptoms of dyspnea. Dyspnea has improved today. Dyspnea have been occurring with short distances of ambulation which could also be a symptom of orthostatic hypotension. Patient is advised to avoid alcohol future. Hypertension was present transiently throughout the stay but has normalized now. Hypertension may reflect mild alcohol which all reaction. Today patient is feeling better and is medically stable for discharge home. Metoprolol and amlodipine have been stopped and he is started on low-dose lisinopril. She is asked to keep a journal of blood pressures. He is also recommended to hydrate well and avoid alcohol. Finally, we discussed caution with position changes. Discharge home today. Pt Condition on Discharge: Stable Discharge Disposition: Discharge Home Discharge Time: <= 30 minutes Discharge Instructions DIET: Follow Instructions for: As Tolerated, No Restrictions Additional Diet Instructions: Avoid Alcohol Activities you can perform: Regular-No Restrictions Follow up Referrals: PCP Follow-up - 1 Week New Medications: Lisinopril (Lisinopril) 10 Mg Tab 10 MG PO DAILY #30 Ref 0 TAB Continued Medications: Atorvastatin (Lipitor) 10 Mg Tab 10 MG PO HS Cholesterol Management #30 Ref 4 TAB Bupropion HCl ER 12 HR (Wellbutrin SR 12 HR) 150 Mg Tab 150 MG PO DAILY Control Depression Ref 0 TAB Calcium Carbonate-Cholecalciferol (Calcium 600 with Vitamin D) 600-400 mg-Unit Tab 1 TAB PO BID Calcium Supplement Ref [address] (Cymbalta DR) 60 Mg Capdr 120 MG PO HS #30 Ref 0 CAP Gabapentin (Gabapentin) 300 Mg Cap 300 MG PO BID #90 Ref 0 CAP Ibuprofen (Ibuprofen) 800 Mg Tab 800 MG PO BID Arthritis Pain Ref 0 TAB Omeprazole Magnesium (Omeprazole Magnesium) 20.6 Mg Cap 20 MG PO BID Quetiapine (Quetiapine) 100 Mg Tab 200 MG PO HS #30 Ref 0 TAB Discontinued Medications: Amlodipine (Amlodipine) 10 Mg Tab 10 MG PO DAILY Blood Pressure Management #90 Ref 3 TAB Metoprolol Tartrate (Metoprolol Tartrate) 25 Mg Tab 25 MG PO BID #60 Ref 2 TAB Jorge Sen MD Oct 19, 2016 14:29
[2016-10-27] MEDS ORDERED: GABA100C4 PO (14:54)
[2016-10-27] MEDS ORDERED: LISI10TA3 PO (15:08)
[2016-10-27] MEDS ORDERED: OMEP20.6 PO (15:10)
== END 2016-10-19 15:52 | disposition home or self-care (01) | DRG 378 ==
LOC: NEPD 15:52 → NEDA 20:51 → OBSVTOIN 22:04 → N06A 23:10
PROVIDERS: ADMIT Hospitalist; ATTEND Hospitalist
PROC: 0DB68ZX Excision of Stomach, Via Natural or Artificial Opening Endoscopic, Diagnostic (ICD-10-PCS; 2016-10-19)
PROC: 0DBN8ZX Excision of Sigmoid Colon, Via Natural or Artificial Opening Endoscopic, Diagnostic (ICD-10-PCS; principal; 2016-10-19 09:00)
PROC: 0DBL8ZX Excision of Transverse Colon, Via Natural or Artificial Opening Endoscopic, Diagnostic (ICD-10-PCS; 2016-10-19 09:00)
DX: K92.1 Melena (principal); E87.1 Hypo-osmolality and hyponatremia; E87.2 Acidosis; I11.0 Hypertensive heart disease with heart failure; I50.9 Heart failure, unspecified; K22.70 Barrett's esophagus without dysplasia; D64.9 Anemia, unspecified; E87.6 Hypokalemia; J43.9 Emphysema, unspecified; F17.200 Nicotine dependence, unspecified, uncomplicated; K29.70 Gastritis, unspecified, without bleeding; D12.5 Benign neoplasm of sigmoid colon; D12.3 Benign neoplasm of transverse colon; K57.90 Diverticulosis of intestine, part unspecified, without perforation or abscess without bleeding; K64.8 Other hemorrhoids; D50.9 Iron deficiency anemia, unspecified; K20.9 Esophagitis, unspecified
CPT/HCPCS: 70450; 71010; 71275; 80048; 80053; 80074; 80307; 82272; 82550; 83605; 83735; 83880; 84484; 85025; 85027; 88305; 88312; 93005; 93306; 96361; 96374; J2060; J7030; Q9967

== ENCOUNTER 2016-12-07 13:11 | Emergency (ER) | payer OTHER ==
[~2016-12-07] VITALS: Ht 185.4 cm; Wt 90.0 kg
[~2016-12-07 13:11] MED LIST changes: -AMLO10TA2 PO; +BUPR150CR PO; +CALC1TAB87 PO; +GABA100C4 PO; -GABA300C5 PO; -HYDR25TA5 PO; -IBUP800T23 PO; +LISI10TA3 PO; -METO25TA3 PO
[2016-12-07 13:13] VITALS: BP 167/100; PULSE 102; RESP 24; TEMP 98.2; O2SAT 94
--- NOTE | 2016-12-07 14:32 | PD ---
Physical Exam Time Seen by Provider: 14:27 Narrative 56yo M c/o possible R 5th metatarsal fracture today; felt it "snap" this morning. Hx of other metatarsal fractures in May and July from ambulation. Does not have a ball on his foot. Hx of R great toe amputation. Sent by chiropractor, Dr. Jean for evaluation. r Data Data Last Documented VS Vital Signs Date Time Temp Pulse Resp B/P Pulse Ox O2 Delivery O2 Flow Rate FiO2 12/07/16 13:13 98.2 102 24 167/100 94 Room Air MDM Supervised Visit with [facility]: Izabella Lei Dec 07, 2016 14:32
--- NOTE | 2016-12-07 15:23 | RADRPT ---
EXAM DATE/TIME: 12/07/2016 14:52 [facility] COMPARISON: FOOT RIGHT COMPLETE ([id number]), July 26, 2016, 20:38. INDICATIONS : Right foot pain. MEDICAL HISTORY : None. SURGICAL HISTORY : Right great toe amputation. ENCOUNTER: Initial ACUITY: 1 day PAIN SCORE: 10/10 LOCATION: Right foot. FINDINGS: There is previous amputation of the first metatarsal ray. Nonunion is present midshaft of the second metatarsal. Degenerative changes are evident at the base of the second metatarsal. Fractures are a ppreciated. CONCLUSION: Findings as described above. Lamine Irwin MD FACR on December 07, 2016 at 15:15 Board Certified Radiologist. This report was verified electronically.
[2016-12-07] MEDS ORDERED: HYDR-3533 PO (20:21)
--- NOTE | 2016-12-07 20:24 | PD ---
HPI Chief Complaint: Injury Time Seen by Provider: 20:21 Travel History International Travel<30 days: No Contact w/Intl Traveler<30days: No Traveled to known affect area: No History of Present Illness HPI 56-year-old white male presents to emergency Department with complaints of right foot pain and swelling after a twisting injury this afternoon. He states that he is a chronic pain and problems with his right foot after having his first toe removed. He states the pain is mild to moderate. Worse with ambulation. He states that he had heard a pop or crack. He was seen by Dr. Young last week for chronic foot pain. PFSH Past Medical History Anxiety: Yes Depression: Yes Cancer: No Cardiovascular Problems: Yes (HTN) High Cholesterol: Yes Endocrine: No Genitourinary: No Hypertension: Yes Musculoskeletal: Yes (LEFT GREAT TOE AMPUTATED 2013, OSTEOMYLELITIS) Neurologic: No Reproductive: No Respiratory: Yes (pneumonia) Immunizations Current: Yes Past Surgical History Abdominal Surgery: Yes (liver) Joint Replacement: Yes (LEFT GREAT TOE 2102) Other Surgery: Yes (rt lumg) Social History Alcohol Use: Yes (4 days a week) Tobacco Use: No (quit 25 yrs ago) Substance Use: No Allergies-Medications (Allergen,Severity, Reaction): Coded Allergies: No Known Allergies (Unverified , 10/27/16) Reported Meds & Prescriptions Reported Meds & Active Scripts Active Omeprazole Magnesium 20.6 Mg Cap 20 Mg PO BID Lisinopril 10 Mg Tab 10 Mg PO DAILY Lipitor (Atorvastatin Calcium) 10 Mg Tab 10 Mg PO HS Reported Gabapentin 100 Mg Cap 100 Mg PO TID Calcium 600 with Vitamin D (Calcium Carbonate-Cholecalciferol) 600-400 mg-Unit Tab 1 Tab PO BID Wellbutrin SR 12 HR (Bupropion HCl) 150 Mg Tab 150 Mg PO DAILY Quetiapine (Quetiapine Fumarate) 100 Mg Tab 200 Mg PO HS Cymbalta DR (Duloxetine HCl) 60 Mg Capdr 120 Mg PO HS Review of Systems Except as stated in HPI: all other systems reviewed are Neg Physical Exam Narrative GENERAL: This is a well-nourished, well-developed patient, in no apparent distress. SKIN: No rashes, ecchymoses or lesions. Warm and dry. HEAD: Atraumatic. Normocephalic. EYES: PERRL, EOMI, no discharge or injection. No scleral icterus. EARS: Clear NOSE: Nasal turbinates appear normal. THROAT: Mucosa pink and moist. Airway patent. NECK: Trachea midline. supple, moves head freely. LUNGS: Clear to auscultation. CV: Regular in rhythm. ABDOMEN: Soft nontender. EXT: No clubbing cyanosis or edema. Examination of the right foot reveals a prior amputation the great toe. He has tenderness along the proximal fifth metatarsal. Skin is intact. Data Data Last Documented VS Vital Signs Date Time Temp Pulse Resp B/P Pulse Ox O2 Delivery O2 Flow Rate FiO2 12/07/16 13:13 98.2 102 24 167/100 94 Room Air Orders Foot, Complete ([id number]) (12/07/16 14:32) Splint Or Brace Apply/Monitor (12/07/16 20:19) Acetamin-Hydrocod 325-5 Mg (Inlet 5-325 (12/07/16 20:30) MDM Medical Decision Making Medical Screen Exam Complete: Yes Emergency Medical Condition: Yes Medical Record Reviewed: Yes Interpretation(s) Last 24 hours Impressions Foot X-Ray 12/07/16 1432 Signed Impressions: Service Date/Time: Wednesday, December 07, 2016 14:52 - CONCLUSION: Findings as described above. Lamine Irwin MD FACR Differential Diagnosis MDM: High Differential diagnoses: Fracture, sprain, strain, dislocation, contusion, neurovascular injury Narrative Course Patient has an acute fracture the fifth metatarsal. Delayed union of the second and fourth metatarsal Patient is placed in a Patterson compression dressing and a cam walker. Patient has declined crutches. Lortab 5 a grams by mouth. Diagnosis Primary Impression: Fracture of fifth metatarsal bone of right foot Qualified Code: S92.354A - Closed nondisplaced fracture of fifth metatarsal bone of right foot, initial encounter Patient Instructions: General Instructions, Narcotic given in the ED Additional Instructions: Rest. Elevation. Ice packs for the next 3 days. Compression dressing and Cam Walker. No weight-bearing and then progress to weight-bearing as tolerated. Medications as directed Follow-up with Dr. Hector oliva orthopedist in one week. Return to the ER if any problems Med/Other Pt SpecificInfo: Prescription(s) given Scripts Hydrocodone-Acetaminophen (Lortab)5-325 Mg Tab1 Tab PO Q6H PRN (PAIN) #20 TAB Prov:Freddie Wang MD 12/07/16 Disposition: 01 DISCHARGE HOME Condition: Stable Yonny Wynne Dec 07, 2016 20:24
[2016-12-07] MEDS ORDERED: ACETAMINOPHEN/HYDROcodone 325 MG/5 MG TAB PO ONE (20:30)
== END 2016-12-07 20:55 | disposition home or self-care (01) ==
LOC: NED 13:11 → NEPK 13:11 → NED 18:48 → NEPK 20:55
DX: S92.354A Nondisplaced fracture of fifth metatarsal bone, right foot, initial encounter for closed fracture (principal); X58.XXXA Exposure to other specified factors, initial encounter; I10 Essential (primary) hypertension; E78.00 Pure hypercholesterolemia, unspecified; Z89.411 Acquired absence of right great toe; Z87.891 Personal history of nicotine dependence
CPT/HCPCS: 73630; 99283; L2114

== ENCOUNTER 2017-02-16 08:59 | Emergency (ER) | payer SELFPAY ==
[~2017-02-16] VITALS: Ht 185.4 cm; Wt 91.0 kg
[~2017-02-16 08:59] MED LIST changes: +AMLO10TA2 PO; -LISI10TA3 PO; +METO25TA3 PO
[2017-02-16 09:01] VITALS: BP 142/96; PULSE 78; RESP 17; TEMP 97.9; O2SAT 95
[2017-02-16] MEDS ORDERED: traMADol HCL 50 MG TAB PO ONE (09:45)
--- NOTE | 2017-02-16 10:37 | RADRPT ---
EXAM DATE/TIME: 02/16/2017 09:55 [facility] COMPARISON: FOOT RIGHT COMPLETE ([id number]), December 07, 2016, 14:52. INDICATIONS : Pain on the top of his right foot and on the lateral side too. MEDICAL HISTORY : None. SURGICAL HISTORY : right great toe amputation ENCOUNTER: Initial ACUITY: 1 day PAIN SCORE: 4/10 LOCATION: Right foot FINDINGS: There is osteotomy at the level of the first metatarsal. Old fractures of the second through fifth me tatarsals are present. There is no bony destruction or periosteal reaction to suggest osteomyelitis. Diffuse soft tissue swelling is present. CONCLUSION: 1. Multiple old fractures without acute fracture identified 2. No plain film findings of osteomyelitis. If there is necessity for further evaluation contrast-enh anced MRI is recommended. Maurizio Flores MD on February 16, 2017 at 10:34 Board Certified Radiologist. This report was verified electronically.
--- NOTE | 2017-02-16 10:59 | PD ---
HPI Chief Complaint: Medical Clearance Time Seen by Provider: 09:27 Travel History International Travel<30 days: No Contact w/Intl Traveler<30days: No Traveled to known affect area: No History of Present Illness HPI Patient is a 56-year-old male who comes in complaining of right foot pain. His history of first toe amputation on this foot, and says that he has to walk on the side of his foot. He says he was moving furniture yesterday when he felt pain in his foot. He is concerned that he has a fracture. He also has multiple chronic complaints. However, he says that he wants to go back to [facility] to see his psychiatrist. He denies any suicidal or homicidal ideations at this time. He did complain of some shortness of breath, but he admits this is chronic, and he will follow-up with the [facility]. He denies any new or worsening medical complaints. He denies any chest pain currently. He denies nausea or vomiting. He has not had fever or chills. PFSH Past Medical History Anxiety: Yes Depression: Yes Cancer: No Cardiovascular Problems: Yes (HTN) High Cholesterol: Yes Diminished Hearing: No Endocrine: No Genitourinary: No Hypertension: Yes Musculoskeletal: Yes (LEFT GREAT TOE AMPUTATED 2013, OSTEOMYLELITIS) Neurologic: No Reproductive: No Respiratory: Yes (pneumonia) Immunizations Current: Yes Past Surgical History Abdominal Surgery: Yes (liver) Joint Replacement: Yes (LEFT GREAT TOE 2102) Other Surgery: Yes (RT LUNG ) Social History Alcohol Use: Yes (DAILY 3-5 DRINKS A DAY) Tobacco Use: No (quit 25 yrs ago) Substance Use: No Allergies-Medications (Allergen,Severity, Reaction): Coded Allergies: No Known Allergies (Unverified , 02/16/17) Reported Meds & Prescriptions Reported Meds & Active Scripts Active Metoprolol Tartrate 25 Mg Tab 25 Mg PO DAILY Amlodipine (Amlodipine Besylate) 10 Mg Tab 10 Mg PO DAILY Omeprazole Magnesium 20.6 Mg Cap 20 Mg PO BID Lipitor (Atorvastatin Calcium) 10 Mg Tab 10 Mg PO HS Reported Gabapentin 100 Mg Cap 100 Mg PO TID Calcium 600 with Vitamin D (Calcium Carbonate-Cholecalciferol) 600-400 mg-Unit Tab 1 Tab PO BID Wellbutrin SR 12 HR (Bupropion HCl) 150 Mg Tab 150 Mg PO DAILY Quetiapine (Quetiapine Fumarate) 100 Mg Tab 200 Mg PO HS Cymbalta DR (Duloxetine HCl) 60 Mg Capdr 120 Mg PO HS Review of Systems General / Constitutional: No: Fever, Chills HENT: No: Headaches, Lightheadedness Cardiovascular: No: Chest Pain or Discomfort Respiratory: Positive: Shortness of Breath Gastrointestinal: No: Nausea, Vomiting Genitourinary: No: Dysuria Musculoskeletal: Positive: Edema, Pain Skin: No Rash, No Change in Pigmentation Neurologic: No: Weakness, Dizziness Physical Exam Narrative GENERAL: Awake and alert, in no acute distress. SKIN: Focused skin assessment warm/dry. No erythema or warmth or wounds, no signs of infection. HEAD: Atraumatic. Normocephalic. EYES: Pupils equal and round. No scleral icterus. ENT: No nasal bleeding or discharge. Mucous membranes pink and moist. CARDIOVASCULAR: Regular rate and rhythm. No murmur appreciated. RESPIRATORY: No accessory muscle use. Clear to auscultation. Breath sounds equal bilaterally. MUSCULOSKELETAL: No obvious deformities. No clubbing. No cyanosis. No edema. Tender to palpation of the lateral side of the right foot. Pedal pulses intact. There is no signs of infection on the foot. NEUROLOGICAL: Awake and alert. No obvious cranial nerve deficits. Motor grossly within normal limits. Normal speech. PSYCHIATRIC: Appropriate mood and affect; insight and judgment normal. Data Data Last Documented VS Vital Signs Date Time Temp Pulse Resp B/P (MAP) Pulse Ox O2 Delivery O2 Flow Rate FiO2 02/16/17 09:01 97.9 78 17 142/96 (111) 95 Room Air Orders Orders Foot, Complete ([id number]) (02/16/17 ) Tramadol (Ultram) (02/16/17 09:45) MDM Medical Decision Making Medical Screen Exam Complete: Yes Emergency Medical Condition: Yes Medical Record Reviewed: Yes Differential Diagnosis Foot fracture versus chronic pain versus sprain Narrative Course Patient is a 56-year-old male who comes in complaining of pain to his right foot. Exam shows tenderness to palpation of the lateral side of the foot. X- ray of the performed shows no acute findings. Patient was given pain medicine. He is advised to take Tylenol or ibuprofen as needed at home. Advised follow- up with his food photographer. Advised to return to the ED as needed for any worsening symptoms. He will be discharged to return to [facility] to see his psychiatrist. Diagnosis Primary Impression: Foot pain, right Patient Instructions: Foot Sprain (ED), General Instructions Additional Instructions: Follow-up through food photographer. Take Tylenol or ibuprofen as needed for pain. Return to the ED as needed for any worsening symptoms. Disposition: 01 DISCHARGE HOME Condition: Stable Marlyn Lucas MD Feb 16, 2017 10:59
== END 2017-02-16 11:19 | disposition home or self-care (01) ==
LOC: NEPD 08:59
DX: M25.571 Pain in right ankle and joints of right foot (principal); F41.9 Anxiety disorder, unspecified; F32.9 Major depressive disorder, single episode, unspecified; I10 Essential (primary) hypertension; E78.5 Hyperlipidemia, unspecified; Z87.891 Personal history of nicotine dependence; Z79.899 Other long term (current) drug therapy
CPT/HCPCS: 73630; 99283

== ENCOUNTER 2017-05-13 13:50 | Emergency (ER) | payer MEDICAID ==
[~2017-05-13] VITALS: Ht 185.4 cm; Wt 95.5 kg
[2017-05-13 13:51] VITALS: BP 169/109; PULSE 101; RESP 18; TEMP 98.3; O2SAT 95
--- NOTE | 2017-05-13 14:46 | PD ---
HPI Chief Complaint: Alcohol/Drug Intoxication Time Seen by Provider: 14:26 Travel History International Travel<30 days: No Contact w/Intl Traveler<30days: No Traveled to known affect area: No History of Present Illness HPI This patient is an alcoholic who drinks over 12 drinks daily. He was drinking yesterday and drinking this morning. He recently developed some twitching and is worried about being in DTs. He also complains of chronic right foot pain and wants it x-rayed. He injured it 3 months ago. Symptoms severity is moderate. Denies drug use. He goes to outpatient [facility] alcohol rehabilitation counseling but continues to drink heavily despite that. No alleviating factors. Exacerbating factors. Duration is 2 years as these are long time chronic problems. PFSH Past Medical History Anxiety: Yes Depression: Yes Cancer: No Cardiovascular Problems: Yes (HTN) High Cholesterol: Yes Diminished Hearing: No Endocrine: No Gastrointestinal Disorders: No Genitourinary: No Hypertension: Yes Implanted Vascular Access Dvce: No Musculoskeletal: Yes (LEFT GREAT TOE AMPUTATED 2013, OSTEOMYLELITIS) Neurologic: No Reproductive: No Respiratory: Yes (pneumonia) Immunizations Current: Yes Tetanus Vaccination: > 5 Years Past Surgical History Abdominal Surgery: Yes (liver) Joint Replacement: Yes (LEFT GREAT TOE 2102) Other Surgery: Yes (RT LUNG ) Social History Alcohol Use: Yes (DAILY 3-5 DRINKS A DAY) Tobacco Use: No (quit 25 yrs ago) Substance Use: No Allergies-Medications (Allergen,Severity, Reaction): Coded Allergies: No Known Allergies (Unverified Adverse Reaction, Unknown, 05/13/17) Reported Meds & Prescriptions Reported Meds & Active Scripts Active Lipitor (Atorvastatin Calcium) 10 Mg Tab 10 Mg PO HS Amlodipine (Amlodipine Besylate) 10 Mg Tab 10 Mg PO DAILY Reported Omeprazole 20 Mg Tab 20 Mg PO BID Metoprolol Tartrate 25 Mg Tab 25 Mg PO BID Gabapentin 300 Mg Cap 300 Mg PO TID Calcium 600 with Vitamin D (Calcium Carbonate-Cholecalciferol) 600-400 mg-Unit Tab 1 Tab PO BID Wellbutrin SR 12 HR (Bupropion HCl) 150 Mg Tab 150 Mg PO DAILY Quetiapine (Quetiapine Fumarate) 100 Mg Tab 200 Mg PO HS Cymbalta DR (Duloxetine HCl) 60 Mg Capdr 60 Mg PO HS Review of Systems General / Constitutional: No: Fever Eyes: No: Visual changes HENT: No: Headaches Cardiovascular: No: Chest Pain or Discomfort Respiratory: No: Shortness of Breath Gastrointestinal: No: Abdominal Pain Genitourinary: No: Dysuria Musculoskeletal: Positive: Pain Skin: No Rash Neurologic: No: Weakness Psychiatric: Positive: Substance Abuse, No: Depression Endocrine: No: Polydipsia Hematologic/Lymphatic: No: Easy Bruising Physical Exam Narrative GENERAL: Well-nourished, well-developed patient in no apparent distress. SKIN: Focused skin assessment reveals no rash and nodules. Skin is Warm and dry. HEAD: Atraumatic. Normocephalic. EYES: Pupils equal and round. No scleral icterus. No injection or drainage. ENT: No nasal bleeding or discharge. Mucous membranes pink and moist. NECK: Trachea midline. No JVD. CARDIOVASCULAR: Regular rate and rhythm. No murmur appreciated. RESPIRATORY: No accessory muscle use. Clear to auscultation. Breath sounds equal bilaterally. GASTROINTESTINAL: Abdomen soft, non-tender, nondistended. Hepatic and splenic margins not palpable. MUSCULOSKELETAL: Has had amputation of the right great toe. No clubbing. No cyanosis. No edema. NEUROLOGICAL: Awake and alert. No obvious cranial nerve deficits. Motor grossly within normal limits. Normal speech. No tremor. He does this periodic muscle twitching thing PSYCHIATRIC: Appropriate mood and affect; insight and judgment poor. Data Data Last Documented VS Vital Signs Date Time Temp Pulse Resp B/P (MAP) Pulse Ox O2 Delivery O2 Flow Rate FiO2 05/13/17 15:28 87 20 144/87 (106) 98 05/13/17 13:51 98.3 Orders Orders Iv Access Insert/Monitor (05/13/17 14:37) Complete Blood Count With Diff (05/13/17 14:37) Basic Metabolic Panel (Bmp) (05/13/17 14:37) Alcohol (Ethanol) (05/13/17 14:37) Foot, Limited (2vws) (05/13/17 ) Chlordiazepoxide (Librium) (05/13/17 14:45) Labs Laboratory Tests Test 05/13/17 14:50 White Blood Count 8.2 TH/MM3 Red Blood Count 4.36 MIL/MM3 Hemoglobin 13.5 GM/DL Hematocrit 41.0 % Mean Corpuscular Volume 94.1 FL Mean Corpuscular Hemoglobin 31.0 PG Mean Corpuscular Hemoglobin Concent 32.9 % Red Cell Distribution Width 13.7 % Platelet Count 268 TH/MM3 Mean Platelet Volume 7.3 FL Neutrophils (%) (Auto) 60.6 % Lymphocytes (%) (Auto) 31.1 % Monocytes (%) (Auto) 7.1 % Eosinophils (%) (Auto) 0.5 % Basophils (%) (Auto) 0.7 % Neutrophils # (Auto) 4.9 TH/MM3 Lymphocytes # (Auto) 2.5 TH/MM3 Monocytes # (Auto) 0.6 TH/MM3 Eosinophils # (Auto) 0.0 TH/MM3 Basophils # (Auto) 0.1 TH/MM3 CBC Comment DIFF FINAL Differential Comment Blood Urea Nitrogen 11 MG/DL Creatinine 1.05 MG/DL Random Glucose 91 MG/DL Calcium Level 8.5 MG/DL Sodium Level 137 MEQ/L Potassium Level 3.8 MEQ/L Chloride Level 102 MEQ/L Carbon Dioxide Level 25.6 MEQ/L Anion Gap 9 MEQ/L Estimat Glomerular Filtration Rate 73 ML/MIN Ethyl Alcohol Level 273 MG/DL [facility] Medical Decision Making Medical Screen Exam Complete: Yes Emergency Medical Condition: Yes Medical Record Reviewed: Yes Differential Diagnosis Alcohol intoxication, alcohol withdrawal, tremor, anxiety, malingering Narrative Course I have reviewed the patient's electronic medical record. IV placed CBC is normal Metabolic profile is normal Alcohol level was elevated at 237 indicating acute intoxication I gave him a dose of Librium 50 mg by mouth. I reviewed his right foot x-rays which showed 2 old fractures one in the third and one of the fifth metatarsal and both have healing bony callus around them. Patient is stable for outpatient follow-up. He is not in DTs. He is actually acutely intoxicated. I recommend he take his alcohol rehabilitation more seriously and wean himself off the alcohol The patient was advised to follow up with their physician and return if they worsen. Diagnosis Primary Impression: Alcohol intoxication Qualified Codes: F10.929 - Alcohol use, unspecified with intoxication, unspecified Additional Impressions: Alcohol abuse Foot pain, right Additional Instructions: The patient was advised to follow up with their physician and return if they worsen. Med/Other Pt SpecificInfo: Other Disposition: 01 DISCHARGE HOME Condition: Stable Booker Estrada MD May 13, 2017 14:46
[2017-05-13] MEDS ORDERED: GABA300C5 PO (14:49)
[2017-05-13] MEDS ORDERED: METO25TA3 PO (14:49)
[2017-05-13] MEDS ORDERED: OMEP20TA93 PO (14:50)
[2017-05-13 15:13] LABS: AUTOMATED NEUTROPHIL # 4.9 TH/MM3 (1.8-7.7); BASOPHIL # 0.1 TH/MM3 (0-0.2); BASOPHIL % 0.7 % (0.0-2.0); EOSINOPHIL % 0.5 % (0.0-4.0); HEMOGLOBIN 13.5 GM/DL (13.0-17.0); LYMPH % 31.1 % (9.0-44.0); LYMPHOCYTE # 2.5 TH/MM3 (1.0-4.8); MEAN CELL VOLUME 94.1 FL (80.0-100.0); MEAN CORPUSCULAR HGB CONC 32.9 % (32.0-36.0); MEAN PLATELET VOLUME 7.3 FL (7.0-11.0); MONO % 7.1 % (0.0-8.0); MONOCYTE # 0.6 TH/MM3 (0-0.9); NEUT % 60.6 % (16.0-70.0); PLATELET COUNT 268 TH/MM3 (150-450); RED BLOOD COUNT 4.36 MIL/MM3 (4.50-5.90); RED CELL DISTRIBUTION WIDTH 13.7 % (11.6-17.2); WHITE BLOOD COUNT 8.2 TH/MM3 (4.0-11.0)
[2017-05-13 15:20] LABS: BICARBONATE 25.6 MEQ/L (21.0-32.0); CALCIUM 8.5 MG/DL (8.5-10.1); CREATININE 1.05 MG/DL (0.60-1.30)
[2017-05-13 15:28] VITALS: BP 144/87; PULSE 87; RESP 20; O2SAT 98
--- NOTE | 2017-05-13 15:51 | RADRPT ---
EXAM DATE/TIME: 05/13/2017 15:02 [place] COMPARISON: No previous studies available for comparison. INDICATIONS : Right foot pain for three years. Patient denies trauma. MEDICAL HISTORY : None. SURGICAL HISTORY : Right great toe amputation. ENCOUNTER: Initial ACUITY: >1 year PAIN SCORE: 5/10 LOCATION: Right foot. FINDINGS: There is transmetatarsal amputation of the great toe. There is an old fracture of the shaft of the th ird and fourth metatarsal as well as a subacute fracture of the fifth metatarsal. There is no evidenc e of acute fracture. Bony mineralization is normal. CONCLUSION: 1. Postsurgical changes as above. old fractures as above 2. There is no evidence of acute fracture. Maurizio Flores MD on May 13, 2017 at 15:47 Board Certified Radiologist. This report was verified electronically.
[2017-05-13 16:26] VITALS: BP 145/78
== END 2017-05-13 16:27 | disposition home or self-care (01) ==
LOC: NEPD 13:50
DX: F10.129 Alcohol abuse with intoxication, unspecified (principal); M79.671 Pain in right foot; L84 Corns and callosities; F41.9 Anxiety disorder, unspecified; F32.9 Major depressive disorder, single episode, unspecified; I10 Essential (primary) hypertension; E78.00 Pure hypercholesterolemia, unspecified; Z79.899 Other long term (current) drug therapy
CPT/HCPCS: 73620; 80048; 80307; 85025; 99284

== ENCOUNTER 2017-10-27 11:45 | Emergency (ER) | payer SELFPAY ==
[~2017-10-27] VITALS: Ht 185.4 cm; Wt 100.0 kg
[~2017-10-27 11:45] MED LIST changes: -GABA100C4 PO; +GABA300C5 PO; -OMEP20.6 PO; +OMEP20TA93 PO
[2017-10-27 11:49] VITALS: BP 142/88; PULSE 87; RESP 16; TEMP 97.8; O2SAT 87
--- NOTE | 2017-10-27 15:09 | PD ---
HPI Chief Complaint: Pain: Acute or Chronic Time Seen by Provider: 12:27 Travel History International Travel<30 days: No Contact w/Intl Traveler<30days: No Traveled to known affect area: No History of Present Illness HPI This patient complains of pain in his right foot. He has some degree of chronic discomfort in that foot. He has had a amputation of the great toe. He has arthritic changes there. He does follow with a chief risk officer Dr. Kinsey. No acute injury. He says his made him come today. No exacerbating factors PFSH Past Medical History Anxiety: Yes Depression: Yes Cancer: No Cardiovascular Problems: Yes (HTN) High Cholesterol: Yes Congestive Heart Failure: Yes Diminished Hearing: No Endocrine: No Gastrointestinal Disorders: No Genitourinary: No Hypertension: Yes Implanted Vascular Access Dvce: No Medical other: Yes (BARRETS ESOPHAGUS) Musculoskeletal: Yes (LEFT GREAT TOE AMPUTATED 2013, OSTEOMYLELITIS) Neurologic: No Reproductive: No Respiratory: Yes Immunizations Current: Yes Tetanus Vaccination: > 5 Years Influenza Vaccination: Yes ?: Not Past Surgical History Abdominal Surgery: Yes (liver) Joint Replacement: Yes (LEFT GREAT TOE 2002) Other Surgery: Yes (RT LUNG ) Social History Alcohol Use: Yes (DAILY 2 DRINKS A DAY) Tobacco Use: No (quit 25 yrs ago) Substance Use: No Allergies-Medications (Allergen,Severity, Reaction): Coded Allergies: No Known Allergies (Unverified Adverse Reaction, Unknown, 05/13/17) Reported Meds & Prescriptions Reported Meds & Active Scripts Active Lipitor (Atorvastatin Calcium) 10 Mg Tab 10 Mg PO HS Amlodipine (Amlodipine Besylate) 10 Mg Tab 10 Mg PO DAILY Reported Omeprazole 20 Mg Tab 20 Mg PO BID Metoprolol Tartrate 25 Mg Tab 25 Mg PO BID Gabapentin 300 Mg Cap 300 Mg PO TID Calcium 600 with Vitamin D (Calcium Carbonate-Cholecalciferol) 600-400 mg-Unit Tab 1 Tab PO BID Wellbutrin SR 12 HR (Bupropion HCl) 150 Mg Tab 150 Mg PO DAILY Quetiapine (Quetiapine Fumarate) 100 Mg Tab 200 Mg PO HS Cymbalta DR (Duloxetine HCl) 60 Mg Capdr 60 Mg PO HS Review of Systems General / Constitutional: No: Fever HENT: No: Headaches Cardiovascular: No: Chest Pain or Discomfort Respiratory: No: Cough Physical Exam Narrative SKIN: Focused skin assessment reveals no rash or ulcers. Skin is warm and dry. Palpation shows no induration or nodules. Psych: Normal mood and affect. Normal insight and judgment. Right foot: Patient has an amputation of the great toe. There is no signs of open wound or infection. The foot has no tenderness whatsoever. Data Data Last Documented VS Vital Signs Date Time Temp Pulse Resp B/P (MAP) Pulse Ox O2 Delivery O2 Flow Rate FiO2 10/27/17 12:09 18 10/27/17 11:49 97.8 87 142/88 (106) 87 MDM Medical Decision Making Medical Screen Exam Complete: Yes Emergency Medical Condition: Yes Medical Record Reviewed: Yes Differential Diagnosis Arthritic pain, contusion, fracture Narrative Course I have reviewed the patient's electronic medical record. No indication for imaging. Clinically looks stable for outpatient podiatry follow-up Diagnosis Primary Impression: Right foot pain Additional Instructions: Follow with podiatry Med/Other Pt SpecificInfo: Other Disposition: 01 DISCHARGE HOME Condition: Stable Booker Estrada MD Oct 27, 2017 15:09
== END 2017-10-27 15:33 | disposition home or self-care (01) ==
LOC: NEPE 11:45
DX: M79.671 Pain in right foot (principal); I11.0 Hypertensive heart disease with heart failure; I50.9 Heart failure, unspecified
CPT/HCPCS: 99282